=== PATIENT | female | born 1970 | race Hispanic/Latino ===

== ENCOUNTER → 2018-02-05 | Day surgery (SDC) | payer OTHER, MEDICARE ==
[~2018-02-05] MED LIST: CYCLOBENZAPRINE5 MG PO; DUAVEE PO; FENTANYL CITRATE/PF 100MCG/2 ML INJ ONE; GABAPENTIN300 MG PO; MIDAZOLAM HCL 2 MG/2 ML VIAL ONE; NEXIUM40 MG PO; NORCO 10-325 T1 EACH PO; NORCO 10MG-325MG1 EA PO; ONDANSETRON HCL INJ 2 MG/ML VIAL ONE; PANTOPRAZOLE SO40 MG PO; PROMETHAZINE HC25 M1 PO; PROPOFOL IV EMULSION 10 MG/ML 50 ML VIAL ONE; ZOFRAN ODT4 MG PO
[2018-02-05 12:10] VITALS: BP 108/60
== END | disposition home or self-care (01) ==
LOC: OR 07:54
PROVIDERS: ATTEND Internal Medicine Gastroenterology
DX: K29.70 Gastritis, unspecified, without bleeding (principal); K44.9 Diaphragmatic hernia without obstruction or gangrene; K25.9 Gastric ulcer, unspecified as acute or chronic, without hemorrhage or perforation; K21.9 Gastro-esophageal reflux disease without esophagitis; K58.9 Irritable bowel syndrome, unspecified; K57.92 Diverticulitis of intestine, part unspecified, without perforation or abscess without bleeding; R93.3 Abnormal findings on diagnostic imaging of other parts of digestive tract; M06.9 Rheumatoid arthritis, unspecified; M19.90 Unspecified osteoarthritis, unspecified site; F41.9 Anxiety disorder, unspecified; Z88.6 Allergy status to analgesic agent; Z80.0 Family history of malignant neoplasm of digestive organs
CPT/HCPCS: 43239; J2250; J2405; 43235

== ENCOUNTER 2018-09-26 15:09 | Emergency (ER) | payer OTHER, MEDICARE ==
[~2018-09-26] VITALS: Ht 162.6 cm; Wt 84.4 kg
[~2018-09-26 15:09] MED LIST changes: -FENTANYL CITRATE/PF 100MCG/2 ML INJ ONE; -MIDAZOLAM HCL 2 MG/2 ML VIAL ONE; -ONDANSETRON HCL INJ 2 MG/ML VIAL ONE; -PROPOFOL IV EMULSION 10 MG/ML 50 ML VIAL ONE
--- NOTE | 2018-09-26 15:40 | NUR ---
RECEIVED REPORT FROM TRIAGE NURSE COSMO TO ASSUME PTS CARE. PT IN ER #[id number]. GOWNED AND PLACED ON MONITOR.
[2018-09-26] MEDS ORDERED: SODIUM CHLORIDE 0.9% 1000ML 1,000 ML IV STA (15:41)
[2018-09-26] MEDS ORDERED: KETOROLAC TROMETHAMINE 30 MG/ML VIAL IV ONE (16:00)
[2018-09-26 16:09] LABS: BASOPHILS % 0.3 % (0.0-1.0); EOSINOPHILS # (AUTO) 0.1 (0.0-0.4); EOSINOPHILS % 0.6 % (0.0-6.0); HEMATOCRIT 41.7 % (34.2-44.1); HEMOGLOBIN 14.1 g/dL (12.0-16.0); LYMPHOCYTES % 23.5 % (18.0-39.1); MEAN CORPUSCULAR HEMOGLOBIN 30.7 pg (28-32); MEAN CORPUSCULAR HGB CONC 33.8 g/dL (31-35); MEAN CORPUSCULAR VOLUME 90.7 fL (81-99); MONOCYTES # (AUTO) 0.4 (0.2-0.8); MONOCYTES % 4.5 % (4.4-11.3); NEUTROPHILS # (AUTO) 6.1 (2.1-6.9); NEUTROPHILS % 70.9 % (38.7-80.0); PLATELET COUNT 275 x10e3/uL (140-360); RED CELL DISTRIBUTION WIDTH 12.6 % (11.7-14.4)
[2018-09-26 16:14] LABS: BILIRUBIN,URINE NEGATIVE (NEGATIVE); CLARITY,URINE SL CLOUDY (CLEAR); COLOR,URINE YELLOW (YELLOW); KETONES,URINE NEGATIVE (NEGATIVE); LEUKOCYTE ESTERASE ,URINE NEGATIVE (NEGATIVE); NITRITE,URINE NEGATIVE (NEGATIVE); PROTEIN,URINE DIPSTICK NEGATIVE (NEGATIVE); URINE UROBILINOGEN 0.2 mg/dL (0.2 - 1)
[2018-09-26 16:15] LABS: AMPHETAMINES SCREEN,URINE NEGATIVE (NEGATIVE); BENZODIAZEPINES SCREEN,URINE NEGATIVE (NEGATIVE); PHENCYCLIDINE SCREEN,URINE NEGATIVE (NEGATIVE)
[2018-09-26 16:23] LABS: BACTERIA,URINE MODERATE /HPF; EPITHELIAL CELLS,URINE MANY /LPF; MUCUS,URINE MODERATE (RARE); RBC,URINE 0-5 /HPF (0-5); WBC,URINE (MAN) 0-5 /HPF (0-5)
[2018-09-26 16:28] LABS: ALANINE AMINOTRANSFERASE 23 IU/L (0-55); ALBUMIN 4.8 g/dL (3.5-5.0); ALBUMIN/GLOBULIN RATIO 1.4 (0.8-2.0); ALKALINE PHOSPHATASE 79 IU/L (40-150); ANION GAP 12.5 mmol/L (8-16); BLOOD UREA NITROGEN 14 mg/dL (7-26); BUN/CREATININE RATIO 18 (6-25); CALCIUM 10.2 mg/dL (8.4-10.2); CARBON DIOXIDE 28 mmol/L (22-29); CHLORIDE 99 mmol/L (98-107); CREATINE KINASE 47 IU/L (29-168); CREATININE, SERUM 0.76 mg/dL (0.57-1.11); EST GLOMERULAR FILTRATION RATE > 60 ML/MIN (60-); GLUCOSE 99 mg/dL (74-118); POTASSIUM 3.5 mmol/L (3.5-5.1); SODIUM 136 mmol/L (136-145)
[2018-09-26] MEDS ORDERED: ZOFRAN4 MG SL (18:28)
[2018-09-26] MEDS ORDERED: DICYCLOMINE HCL 20 MG/2 ML VIAL IM ONE (18:30)
--- NOTE | 2018-09-26 18:35 | NUR ---
PT WAS COMPLAINING THAT PAIN INCREASED BACK TO 10/10. SAYS THAT THE TORADOL HAD WORKED FOR A LITTLE WHILE BUT NOW SHE IS IN SEVERE PAIN AGAIN. DR. BOSTON ORDEDED VINNY. WHEN I WENT IN THE ROOM TO GIVE THE PATIENT THE BENTYL SHE WAS ON THE PHONE LAUGHING AND TALKING TO HER DAUGHTER. I WAITED FOR SEVERAL MINUTES BUT SHE DIDN'T GET OFF THE PHONE SO I TOLD HER I WOULD BE BACK BECAUSE I HAD ANOTHER PT TO SEE. BEFORE I GAVE HER THE BENTYL SHE SAID CAN'T I JUST HAVE SOME MORPHINE.
--- NOTE | 2018-09-26 18:50 | NUR ---
REPORT GIVEN TO DWAYNE MONTOYA FOR CONTINUATION OF CARE
--- NOTE | 2018-09-26 19:16 | Diagnostic Imaging Report ---
EXAM: CT Abdomen and Pelvis WITHOUT contrast INDICATION: Left lower abdominal pain. COMPARISON: 02/04/2017. TECHNIQUE: Abdomen and pelvis were scanned utilizing a multidetector helical scanner from the lung base to the pubic symphysis without administration of IV contrast. Absence of intravenous contrast decreases sensitivity for detection of focal lesions and vascular pathology. Coronal and sagittal reformations were obtained. Routine protocol was performed. IV CONTRAST: None. ORAL CONTRAST: Water RADIATION DOSE: Total DLP: 474.79 mGy*cm Estimated effective dose: (DLP x 0.015 x size factor) mSv COMPLICATIONS: None FINDINGS: LINES and TUBES: None. LOWER THORAX: Bibasilar dependent atelectasis. HEPATOBILIARY: No focal hepatic lesions. No biliary ductal dilation. GALLBLADDER: Status post cholecystectomy. SPLEEN: No splenomegaly. PANCREAS: No focal masses or ductal dilatation. ADRENALS: No adrenal nodules KIDNEYS/URETERS: No hydronephrosis. No cystic or solid mass lesions. No stones. GI TRACT: No abnormal distention, wall thickening, or evidence of bowel obstruction. Rectosigmoid anastomosis not well evaluated due to the lack of contrast. Sigmoid diverticulosis without evidence of acute diverticulitis within the limitations of the exam. Appendix is surgically absent. PELVIC ORGANS/BLADDER: The uterus is absent. LYMPH NODES: No lymphadenopathy. VESSELS: Unremarkable. PERITONEUM / RETROPERITONEUM: No free air or fluid. BONES: Status post laminectomy with posterior fusion of L3-L5 with transpedicular screws system which appears intact. Interbody grafts at these levels. Degenerative disc disease at L5-S1 with small posterior disc osteophyte complex. SOFT TISSUES: Periumbilical eventration with a small fat-containing hernia. IMPRESSION: 1. No acute abdominal pelvic abnormality. No urolithiasis or obstructive uropathy. 2. Colonic diverticulosis without diverticulitis. 3. Postoperative changes of the lower lumbar spine. Signed by: Dr. Teresa Wilde M.D. on 09/26/2018 7:13 PM
== END 2018-09-26 19:33 | disposition home or self-care (01) ==
LOC: ER 15:09
DX: R10.32 Left lower quadrant pain (principal); R10.84 Generalized abdominal pain; K21.9 Gastro-esophageal reflux disease without esophagitis; M54.9 Dorsalgia, unspecified; G89.29 Other chronic pain
CPT/HCPCS: 36415; 74176; 80053; 80307; 81001; 82550; 82553; 83690; 84484; 85025; 99284; J0500; J1885; J7030

== ENCOUNTER → 2019-09-26 | Outpatient (CLI) | payer OTHER, MEDICARE ==
[~2019-09-26] MED LIST changes: +ZOFRAN4 MG SL
--- NOTE | 2019-09-26 10:58 | Diagnostic Imaging Report ---
X-ray chest PA and lateral History: Follow-up of bronchitis Findings: Cardiomediastinal silhouette is unremarkable. No pleural effusion. No pneumothorax. Lung olivo unremarkable for an acute disease process. A 10 mm oval opacity in the left lower lung zone could represent a granuloma. This can be further evaluated on a CT. Visualized skeletal structures and upper abdomen unremarkable for acute process. Cholecystectomy clips in the right upper quadrant and transpedicular screws at L3 level noted. Impression: No acute cardiopulmonary disease. A small oval opacity in the left lower lung zone should be followed up by comparison with the previous chest imaging or a chest CT. Signed by: Prince Parada MD on 09/26/2019 10:54 AM
--- NOTE | 2019-10-01 21:55 | Progress Note ---
DATE: 10/01/2019 ADDITIONAL ATTENDING PHYSICIAN: Dr. Luis Garcia. PRIMARY CARE PHYSICIAN: Dr. Abad Way. CONSULTING PHYSICIANS: Include; Dr. Jax Mueller with Infectious Disease, Dr. Kleber Beltran with Nephrology and Dr. Cameron Espino with Podiatry. SUBJECTIVE: The patient is out of bed, sitting up in a chair at bedside. Still has complaints of chills. Denies pain. Otherwise, no new complaints. She states at home, she takes Novolin N 40 units at bedtime and Novolin R sliding scale insulin usually 12 units if her blood sugar is greater than or equal to 159 mg/dL. OBJECTIVE: VITAL SIGNS: Temperature 99.4, T-max 99.7, heart rate 66, blood pressure 122/58, respirations 18, and oxygen saturation 95%. GENERAL: Out of bed, sitting up in a chair, in no acute distress. LUNGS: Clear to auscultation. HEENT: EOMI. NECK: Supple. CARDIOVASCULAR: Regular rate and rhythm. No murmur. ABDOMEN: Bowel sounds are positive. Nontender. Soft. No guarding. EXTREMITIES: Right foot wrapped with Kerlix dressing. Trace edema of the legs. No sign of DVT. NEUROLOGICAL: GCS 15. Nonfocal. DIAGNOSTIC STUDIES AND LABORATORY DATA: Sodium 129, potassium 3.6, chloride 96, CO2 of 19, BUN 86, creatinine 4.76, GFR 12, and glucose 187. Fingerstick blood glucose levels 231, 217, and 256. Calcium 7.6, total bilirubin 0.2, AST 17, ALT 13, alkaline phosphatase 93, total protein 6.3, albumin 2.0. WBC 12.87, hemoglobin 8.1, hematocrit 23.2, and platelets 417. IMAGIN-view right foot x-ray completed today showed soft tissue ulceration along the medial aspect of the 1st MTP joint without underlying acute osseous injury or specific radiographic evidence of osteomyelitis. MEDICATIONS: Reviewed. ASSESSMENT AND PLAN: 1. Right foot cellulitis, status post I and D with metal foreign body removal. Continue Rocephin IV per Infectious Disease. Wound culture and sensitivity positive for Serratia marcescens. Pain control thrombocytosis and leukocytosis noted. There has been discussion about possible tunneled central venous catheter as the patient has chronic kidney disease. Dr. Mueller and Dr. Grey has spoken over the phone and maybe the patient will be discharged on oral antibiotics. Text message sent to [place] with Infectious Disease, awaiting reply. 2. Uncontrolled type 1 diabetes mellitus. Fingerstick blood glucose levels 217 to 256. Today, we will restart her NPH insulin per home medication list. The NPH insulin is 25 units at bedtime, she takes 40 units at bedtime. We will start her on 25 units at bedtime and continue with sliding scale insulin. 3. Controlled hypertension. Continue hydralazine. 4. Acute kidney injury on chronic kidney disease /5. Estimated GFR 12. Nephrology following. We will await spot urine protein/creatinine ratio, spot urine sodium and creatinine, fraction excretion of sodium, kidney ultrasound. She is no longer on vancomycin. 5. Severe acute hyponatremia, improving. Sodium level 129 today. Continue sodium tabs, sodium bicarbonate, currently off fluids. 6. Iron deficiency anemia. Oral iron resumed as per the patient request. 7. Obesity with BMI of 31.74. 8. Prophylaxis. Protonix. Time spent 35 minutes. Billing code [id number]. Dictated by Kirill Henderson NP MD MICHAEL BeyP/MODL /[id number]
== END ==
LOC: RAD 10:08
PROVIDERS: ATTEND Family Medicine
DX: J40 Bronchitis, not specified as acute or chronic (principal)
CPT/HCPCS: 71046

== ENCOUNTER 2020-10-05 19:30 | Emergency (ER) | payer BC, MEDICARE ==
[~2020-10-05] VITALS: Ht 162.6 cm; Wt 81.6 kg
[2020-10-05 19:56] LABS: BASOPHILS # (AUTO) 0.1 (0.0-0.1); BASOPHILS % 0.5 % (0.0-1.0); EOSINOPHILS % 0.2 % (0.0-6.0); LYMPHOCYTES # (AUTO) 2.2 (1.0-3.2); LYMPHOCYTES % 22.3 % (18.0-39.1); MEAN CORPUSCULAR HEMOGLOBIN 30.7 pg (28-32); MEAN CORPUSCULAR HGB CONC 33.3 g/dL (31-35); MONOCYTES # (AUTO) 0.5 (0.2-0.8); MONOCYTES % 5.2 % (4.4-11.3); NEUTROPHILS # (AUTO) 6.9 (2.1-6.9); NEUTROPHILS % 71.5 % (38.7-80.0); PLATELET COUNT 253 x10e3/uL (140-360); RED BLOOD COUNT 4.24 x10e6/uL (3.6-5.1); RED CELL DISTRIBUTION WIDTH 13.2 % (11.7-14.4)
[2020-10-05] MEDS ORDERED: KETOROLAC TROMETHAMINE 30 MG/ML VIAL IV STA (20:06)
[2020-10-05] MEDS ORDERED: ONDANSETRON HCL INJ 2MG/ML 2ML 2 MG/ML VIAL IV STA ×2 (20:06→22:52)
[2020-10-05 20:13] LABS: CLARITY,URINE CLEAR (CLEAR); COLOR,URINE YELLOW (YELLOW); KETONES,URINE NEGATIVE (NEGATIVE); LEUKOCYTE ESTERASE ,URINE NEGATIVE (NEGATIVE); NITRITE,URINE NEGATIVE (NEGATIVE); PROTEIN,URINE DIPSTICK NEGATIVE (NEGATIVE); URINE UROBILINOGEN 0.2 mg/dL (0.2 - 1)
[2020-10-05 20:15] LABS: ALANINE AMINOTRANSFERASE 30 IU/L (0-55); ALBUMIN 4.4 g/dL (3.5-5.0); ALBUMIN/GLOBULIN RATIO 1.5 (0.8-2.0); ALKALINE PHOSPHATASE 68 IU/L (40-150); ANION GAP 14.9 mmol/L (8-16); BLOOD UREA NITROGEN 20 mg/dL (7-26); BUN/CREATININE RATIO 28 (6-25); CALCIUM 9.4 mg/dL (8.4-10.2); CARBON DIOXIDE 26 mmol/L (22-29); CHLORIDE 102 mmol/L (98-107); CREATININE, SERUM 0.72 mg/dL (0.57-1.11); EST GLOMERULAR FILTRATION RATE > 60 ML/MIN (60-); GLUCOSE 102 mg/dL (74-118); POTASSIUM 3.9 mmol/L (3.5-5.1); SODIUM 139 mmol/L (136-145)
[2020-10-05] MEDS ORDERED: SODIUM CHLORIDE 0.9% 1000ML 1,000 ML IV ONE (20:15)
[2020-10-05 20:24] LABS: RBC,URINE 0-5 /HPF (0-5)
[2020-10-05 20:33] LABS: AMYLASE 49 U/L (25-125); LIPASE 14 U/L (8-78)
[2020-10-05] MEDS ORDERED: DIATRIZOATE MEGL/DIATRIZOA SOD 30 ML BTL PO ONE (20:39)
[2020-10-05] MEDS ORDERED: IOPAMIDOL 370 MG/ML 200 ML INFUS..BTL INJ ONE (21:22)
[2020-10-05] MEDS ORDERED: SODIUM CHLORIDE 0.9% 50ML 50 ML ONE (21:22)
[2020-10-05] MEDS ORDERED: PANTOPRAZOLE 40 MG 10ML VIAL IV STA (22:52)
[2020-10-05] MEDS ORDERED: PANTOPRAZOLE 40 MG 10ML VIAL ONE (23:02)
[2020-10-05] MEDS ORDERED: ONDANSETRON HCL INJ 2MG/ML 2ML 2 MG/ML VIAL ONE (23:02)
[2020-10-05 23:04] VITALS: BP 136/83
== END 2020-10-05 23:06 | disposition home or self-care (01) ==
LOC: ER 20:07
DX: R10.32 Left lower quadrant pain (principal); R11.2 Nausea with vomiting, unspecified; R19.7 Diarrhea, unspecified; R51.9 Headache, unspecified; M54.9 Dorsalgia, unspecified; G89.29 Other chronic pain; Z98.0 Intestinal bypass and anastomosis status
CPT/HCPCS: 36415; 74177; 80053; 81001; 82150; 83690; 85025; 99284; C9113; J1885; J2405; J7030; Q9967

== ENCOUNTER → 2020-10-19 | Day surgery (SDC) | payer BC, MEDICARE ==
[~2020-10-19] MED LIST changes: +POVIDONE IODINE 0.05% 0.05 % ML PO ONE; +PROPOFOL IV EMULSION 10 MG/ML 20 ML VIAL ONE
[2020-10-19 10:55] VITALS: BP 107/68
== END | disposition home or self-care (01) ==
LOC: OR 08:45
PROVIDERS: ATTEND Internal Medicine Gastroenterology
DX: K20.90 Esophagitis, unspecified without bleeding (principal); K29.60 Other gastritis without bleeding; K29.50 Unspecified chronic gastritis without bleeding; K44.9 Diaphragmatic hernia without obstruction or gangrene; K21.9 Gastro-esophageal reflux disease without esophagitis; R19.8 Other specified symptoms and signs involving the digestive system and abdomen; K57.92 Diverticulitis of intestine, part unspecified, without perforation or abscess without bleeding; K59.09 Other constipation; Z88.6 Allergy status to analgesic agent; Z01.812 Encounter for preprocedural laboratory examination; Z20.822 Contact with and (suspected) exposure to COVID-19; Z68.30 Body mass index [BMI] 30.0-30.9, adult; Z80.0 Family history of malignant neoplasm of digestive organs
CPT/HCPCS: 43239; J2704; U0002

== ENCOUNTER → 2021-03-15 | Outpatient (CLI) | payer BC, MEDICARE ==
[~2021-03-15] MED LIST changes: -POVIDONE IODINE 0.05% 0.05 % ML PO ONE; -PROPOFOL IV EMULSION 10 MG/ML 20 ML VIAL ONE
== END ==
LOC: MRI 09:40
PROVIDERS: ATTEND Physical Medicine & Rehabilitation Pain Medicine
DX: M47.27 Other spondylosis with radiculopathy, lumbosacral region (principal)
CPT/HCPCS: 72148